=== PATIENT | female | born 1980 | race American Indian/Alaskan Native ===

== ENCOUNTER 2017-10-02 14:59 | Emergency (ER) | payer MEDICAID, OTHER ==
[2017-10-02 15:12] VITALS: BP 132/69
[2017-10-02] MEDS ORDERED: MOTRIN PO ONE (15:53)
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
== END 2017-10-02 17:51 | disposition home or self-care (01) ==
LOC: ED 14:59
DX: S13.4XXA Sprain of ligaments of cervical spine, initial encounter (principal); V49.49XA Driver injured in collision with other motor vehicles in traffic accident, initial encounter; Y93.89 Activity, other specified; Y99.8 Other external cause status; Y92.488 Other paved roadways as the place of occurrence of the external cause
CPT/HCPCS: 70450; 70486